=== PATIENT | female | born 1985 | race American Indian/Alaskan Native ===

== ENCOUNTER 2019-11-10 07:37 | Emergency (ER) | payer SELFPAY ==
--- NOTE | 2019-11-10 09:01 | Emergency Department Report ---
ED ENT HPI - General Chief complaint: Sore Throat Stated complaint: POSS STREP THROAT/PAIN Time Seen by Provider: 11/10/19 08:25 Source: patient Mode of arrival: Ambulatory Limitations: No Limitations - History of Present Illness Initial comments: 34-year-old female complaining of sore throat 4 days and fever. She also complaining and occasional dry cough and chills. States she was around a coworker with similar symptoms. She denies chest pain, shortness of breath she is able to swallow but it's painful to swallow. MD complaint: sore throat -: days(s) (4) Quality: sharp Consistency: constant Improves with: none Worsens with: swallowing Associated Symptoms: fever, cough, pain with swallowing, sore throat - Related Data Previous Rx's Medication Instructions Recorded Last Taken Type Amoxicillin [Trimox CAP] 500 mg PO BID 10 Days #20 capsule 11/10/19 Unknown Rx Allergies Allergy/AdvReac Type Severity Reaction Status Date / Time No Known Allergies Allergy Verified 11/10/19 07:41 ED Dental HPI - General Chief complaint: Sore Throat Stated complaint: POSS STREP THROAT/PAIN Time Seen by Provider: 11/10/19 08:25 Source: patient Mode of arrival: Ambulatory Limitations: No Limitations - Related Data Previous Rx's Medication Instructions Recorded Last Taken Type Amoxicillin [Trimox CAP] 500 mg PO BID 10 Days #20 capsule 11/10/19 Unknown Rx Allergies Allergy/AdvReac Type Severity Reaction Status Date / Time No Known Allergies Allergy Verified 11/10/19 07:41 ED Review of Systems ROS: Stated complaint: POSS STREP THROAT/PAIN Other details as noted in HPI Comment: All other systems reviewed and negative Constitutional: chills, fever, malaise Eyes: denies: eye pain ENT: throat pain. denies: ear pain, dental pain, hearing loss Respiratory: cough. denies: shortness of breath Cardiovascular: denies: chest pain, dyspnea on exertion Endocrine: denies: excessive sweating Gastrointestinal: nausea. denies: abdominal pain, diarrhea, constipation, hematemesis Genitourinary: denies: dysuria Musculoskeletal: denies: back pain Skin: denies: rash ED Past Medical Hx - Past Medical History Previous Medical History?: No - Surgical History Past Surgical History?: Yes Additional Surgical History: tubal ligation, I&D - Social History Smoking Status: Never Smoker Substance Use Type: None - Medications Home Medications: Home Medications Medication Instructions Recorded Confirmed Last Taken Type Amoxicillin [Trimox CAP] 500 mg PO BID 10 Days #20 capsule 11/10/19 Unknown Rx ED Physical Exam - General Limitations: No Limitations General appearance: alert, in no apparent distress - Head Head exam: Present: atraumatic - Eye Eye exam: Present: normal appearance. Absent: scleral icterus, conjunctival injection, periorbital swelling - ENT ENT exam: Present: mucous membranes moist, TM's normal bilaterally, other (uvula midline ,tonsils +erythrema, no exudate, +postpharyngeal erythrema) - Respiratory Respiratory exam: Present: normal lung sounds bilaterally. Absent: respiratory distress, wheezes, rales, rhonchi - Cardiovascular Cardiovascular Exam: Present: regular rate, normal heart sounds - Extremities Exam Extremities exam: Present: normal inspection, normal capillary refill - Back Exam Back exam: Present: normal inspection - Neurological Exam Neurological exam: Present: alert - Psychiatric Psychiatric exam: Present: normal affect - Skin Skin exam: Present: warm, dry, intact, normal color ED Course Vital Signs 11/10/19 11/10/19 07:41 07:42 Temperature 100.3 F H 100.3 F H Pulse Rate 135 H 132 H Respiratory 20 16 Rate Blood Pressure 104/64 104/64 O2 Sat by Pulse 100 99 Oximetry ED Medical Decision Making - Medical Decision Making 34-year-old female with severe sore throat and low-grade fever 4 days rapid strep is negative based on examination with the severity of erythema and pain patient is with acute pharyngitis we will treat her with amoxicillin throat culture pending Critical Care Time: No Critical care attestation.: If time is entered above; I have spent that time in minutes in the direct care of this critically ill patient, excluding procedure time. ED Disposition Clinical Impression: Acute pharyngitis Qualifiers: Pharyngitis/tonsillitis etiology: unspecified etiology Qualified Code(s): J02.9 - Acute pharyngitis, unspecified Disposition: - TO HOME OR SELFCARE Is pt being admited?: No Does the pt Need Aspirin: No Condition: Stable Instructions: Pharyngitis (ED) Additional Instructions: Take antibiotic as prescribed until completely gone. Okay to use [id number] ibuprofen 2 tablets every 6-8 hours as needed for pain. Warm salt water gargles at least 3 times a day. Follow-up with her own primary care doctor or [facility]. Change her toothbrush 24 hours after starting antibiotic. Prescriptions: Amoxicillin [Trimox CAP] 500 mg PO BID 10 Days #20 capsule Referrals: SARIKA TUTTLE MD [Primary Care Provider] - 3-5 Days ELLIS EUBANKS MD [Staff Physician] - 3-5 Days Time of Disposition: 11:46
[2019-11-10] MEDS ORDERED: IBUPROFEN 600 MG TAB PO ONE (10:28)
[2019-11-10 12:49] VITALS: BP 106/72
== END 2019-11-10 12:47 | disposition home or self-care (01) ==
LOC: ED 07:37
DX: J02.9 Acute pharyngitis, unspecified (principal); Z79.899 Other long term (current) drug therapy; Z98.890 Other specified postprocedural states; Z98.51 Tubal ligation status
CPT/HCPCS: 87116; 87430